=== PATIENT | male | born 1950 | race Caucasian/White ===

== ENCOUNTER 2017-01-21 19:25 | Inpatient (IN) | payer MEDICARE, OTHER ==
--- NOTE | ~2017-01-21 | IDS ---
Interim Discharge Summary [facility] [address] [place]. [address] NAME: KHUSHBU ADAMS : 49 STATUS : ADM IN PAT#: [id number] AGE: 66 ADM/REG DATE : 01/21/17 MR#: [id number] REPORT SERV DATE: 01/27/17 DICTATED BY: JOSE LAST DATE: 01/26/17 REPORT STATUS : Draft TRANSCRIBED BY: MODL DATE: 01/26/17 ADMISSION DATE: 01/21/2017 DISCHARGE DATE: WORKING DIAGNOSES: 1. Pneumomediastinum, developed during this hospital stay. 2. Exacerbation of idiopathic pulmonary fibrosis. 3. Acute on chronic hypoxic respiratory failure, at baseline. The patient is on 4 to 6 L of oxygen per nasal cannula. 4. Cough. 5. Coronary artery disease. CONSULTS: 1. Pulmonology. 2. Cardiothoracic Surgery. PROCEDURES: None. HOSPITAL COURSE: This is a 66-year-old gentleman who was admitted to the hospital with acute exacerbation of idiopathic pulmonary fibrosis. For details, please refer to excellent H and P by Dr. Jurado. In summary, the patient was admitted and was given oxygen support along with bronchodilator therapy and IV steroids. The patient actually responded really well and was getting ready for tentative discharge before the . On Thursday, in the evening, the patient developed change in his voice and odynophagia. The patient was evaluated by our night staff and had a CT of the neck performed, which showed significant amount of free air within the soft tissues and pneumomediastinum. The patient had gotten a CTA of the chest at the time of admission due to elevated D-dimer, which was negative for a PE and also at that time, it did not show any pneumomediastinum. Repeat CT as well as chest x-ray was performed on Thursday morning, which again showed extensive pneumomediastinum. Cardiothoracic Surgery was involved in the care, and the patient had a Gastrografin swallow study which demonstrated no esophageal leak. Throughout the weekend, the patient actually continued to improve clinically and he now remains on just 3 L of oxygen per nasal cannula. The patient still has hoarseness, but otherwise, he does not have odynophagia anymore. The tentative plan is for the patient to have a repeat chest x-ray in the morning to make sure he does not have a pneumothorax and if chest x-ray in the morning is stable, the patient may be discharged home with followup plans with Dr. Rashid by the end of the week with a repeat outpatient chest x-ray. For the idiopathic pulmonary fibrosis, the patient is being evaluated for a lung transplant at [place]. Pulmonology is working to get the patient in with [place] next month as the patient has rapidly progressing idiopathic pulmonary fibrosis. The patient remains on p.o. steroids which he can taper off when he gets discharged home. Otherwise, no other acute issues during this hospital stay. Interim Discharge Summary [place] [id number] [facility] [place]. [address] NAME: KHUSHBU ADAMS : 49 STATUS : ADM IN PAT#: [id number] AGE: 66 ADM/REG DATE : 01/21/17 MR#: [id number] REPORT SERV DATE: 01/27/17 DICTATED BY: JOSE LAST DATE: 01/26/17 REPORT STATUS : Draft TRANSCRIBED BY: PATRICIA DATE: 01/26/17 [facility] Jose Last MD / [id number] CC: MD Tania Jarvis D.O.
--- NOTE | ~2017-01-21 | CN ---
Consultation Report [facility] [address] [place]. [address] NAME: GUILLAUME ADAMS : 49 STATUS : ADM IN PAT#: [id number] AGE: 66 ADM/REG DATE : 01/21/17 MR#: [id number] REPORT SERV DATE: 01/22/17 DICTATED BY: CAMERON CEJA DATE: 01/22/17 REPORT STATUS : Draft TRANSCRIBED BY: MODL DATE: 01/22/17 CONSULTATION NOTE DATE OF CONSULTATION: 01/22/2017 REQUESTING PHYSICIAN: Jose Christopher MD CHIEF COMPLAINT: Shortness of breath in a patient with progressing idiopathic pulmonary fibrosis. HISTORY OF PRESENT ILLNESS: Mr. Guillaume Adams is a very pleasant 66-year-old white male, with a past medical history significant for idiopathic pulmonary fibrosis, chronic hypoxemic respiratory failure, and remote smoking history, who presents to [facility] as a direct admit for complaints of worsening shortness of breath and hypoxemia. It should be noted that Mr. Adams has not been hospitalized recently. Mr. Adams is currently followed locally by Dr. Kaylah Rashid for his outpatient pulmonary needs. He is on chronic oxygen supplementation ranging 4 to 6 L. He does occasionally increase the flow rate with exertion. He is taking pirfenidone 267 mg for his idiopathic pulmonary fibrosis. He is also on an anti-reflux medication. He has been seen by the team at [facility] for his idiopathic pulmonary fibrosis. He has also been assessed by [facility] for possible transplant. He has a followup appointment with them in March of this year. In an attempt to qualify for possible transplant, he has been actively participating in pulmonary rehab and a weight loss program. He describes his exercise tolerance has becoming progressively worse. Mr. Adams states that earlier this week, he began to experience worsening shortness of breath exceeding his baseline. His dry nonproductive cough began to become more pronounced. He did go for pulmonary rehab on Thursday, but was unable to complete his usual regimen. He noticed that his pulmonary reserve was even less than before. The patient did persevere until Thursday, when he felt that he would better be served by inpatient pulmonary care. As such, he was received as a direct admit to [facility]. He was given supplemental oxygen, steroids, and breathing treatments. For the aforementioned reasons, he has been referred to Pulmonary for further assessment. Currently, Mr. Adams states that he is breathing better. He continues to have a dry nonproductive cough. He does have complaints of a feeling that he needs to expectorate some degree. He has coughed up some thick sputum, although, it is not purulent. He denies any wheezing in his chest. He denies any recent fever or other signs of pneumonia. The patient does have known coronary artery disease, and has received stenting in the past. He currently denies any murmurs, angina, or palpitations. In regard to constitutional symptoms, he denies any fever chills, nausea, vomiting, chest Consultation Report [facility] [address] [place]. [address] NAME: GUILLAUME ADAMS : 49 STATUS : ADM IN [facility]#: [id number] AGE: 66 ADM/REG DATE : 01/21/17 MR#: [id number] REPORT SERV DATE: 01/22/17 DICTATED BY: CAMERON CEJA DATE: 01/22/17 REPORT STATUS : Draft TRANSCRIBED BY: PATRICIA DATE: 01/22/17 pain, abdominal pain, or edema. PAST MEDICAL HISTORY: 1. Idiopathic pulmonary fibrosis. 2. Chronic hypoxemic respiratory failure. 3. Small airways disease. 4. Gastroesophageal reflux disease. 5. Previous myocardial infarction. PAST SURGICAL HISTORY: Previous stent placement. FAMILY HISTORY: The patient states there is a family history of myocardial infarction. SOCIAL HISTORY: The patient is accompanied today by his son. He previously worked at [employer]. He may have had previous exposures to asbestos. TOBACCO/ALCOHOL: As previously mentioned, the patient is a very remote smoker having quit over 13 years ago. MEDICATIONS: Aspirin 81 mg, ondansetron 4 mg, pantoprazole 20 mg, and pirfenidone 267 mg. ALLERGIES: THE PATIENT HAS NUMEROUS ALLERGIES TO POLLENS THAT ARE LISTED IN THE CHART. NO KNOWN DRUG ALLERGIES. REVIEW OF SYSTEMS: A complete review of systems was performed with pertinent positives and negatives contained within the body of the HPI. PHYSICAL EXAMINATION: VITAL SIGNS: Blood pressure of 100/59, heart rate of 95, T-max of 97.9, respiratory rate of 18, and SpO2 is 95% on 6 L. GENERAL: The patient is a pleasant, well-nourished/well-developed male, who is not currently exhibiting any signs of acute distress. Skin: Skin with appropriate texture and turgor. No rashes, lesions, or ulcers. Nails are clear without cyanosis or clubbing. HEENT: Head: Skull is normocephalic/atraumatic. Facies symmetric. No masses or lesions. Eyes: Sclera anicteric, conjunctiva pink without exudates. Extra ocular movements intact. Pupils are equal, round, reactive to light. Ears: Auricles and tragus without pain to palpation. Hearing is grossly intact. Nose: Bilateral nasal patency. Sinuses without tenderness upon palpation. Throat: Dentition. Lips, oral mucosa, tongue, palate, and pharynx pink and moist without lesions. Uvula rises equally on phonation. Tongue midline without deviation. NECK: Neck supple. Trachea midline. No cervical lymphadenopathy appreciated. THORAX/LUNGS: Thorax is symmetric with equal chest rise. Breath sounds audible through entire field. No rales, wheezes, rhonchi. Inspiratory crackles in the posterior bases. Consultation Report [address] [place]. [address] NAME: GUILLAUME ADAMS : 49 STATUS : ADM IN [facility]#: [id number] AGE: 66 ADM/REG DATE : 01/21/17 MR#: [id number] REPORT SERV DATE: 01/22/17 DICTATED BY: CAMERON CEJA DATE: 01/22/17 REPORT STATUS : Draft TRANSCRIBED BY: PATRICIA DATE: 01/22/17 CARDIOVASCULAR: Regular rate and rhythm. No murmurs, rubs, or gallops. Anterior chest without thrills, heaves, or lifts. ABDOMEN: Soft. Non-distended, non-tender. Active bowel sounds in all four quadrants. No hepatosplenomegaly noted. PERIPHERAL VASCULAR: No edema. No varicosities, stasis changes, open sores, ulcerations, or phlebitis. 2+ pulses in radial and dorsalis pedis. MUSCULOSKELETAL: Full AROM and PROM in all joints. No evidence of erythema, deformity, or crepitus. NEUROLOGIC: CN II - XII grossly intact. Good muscle bulk and tone bilaterally. Strength 5/5 throughout. PSYCHIATRIC: Patient demonstrates good judgment and insight. Pt is A&O x 3. ACCESSORY DATA: reveals a white blood cell count of 540,0 hemoglobin and hematocrit 12.4 and 36.2. Electrolyte panel is within normal limits. Glucose is elevated at 144. There is a CTA of the chest pending. IMPRESSION: 1. Acute hypoxemic respiratory failure. 2. Idiopathic pulmonary fibrosis-exacerbation. PLAN: 1. At this time, we will place the patient on high-flow humidified oxygen. We will attempt to wean his oxygen as tolerated with a goal to 4 to 6 L. 2. In regard to the patient's exacerbation of idiopathic pulmonary fibrosis. He has been placed appropriately on steroid therapy. We will slightly decrease his IV steroids today and reassess tomorrow for clinical stability. Based on that we may be able to transition him to oral prednisone and taper accordingly. He is receiving bronchodilators as they provide him with subjective improvement in his breathing. He does have continuing dry nonproductive cough which is expected in this particular disease process. We will attempt to provide some symptomatic relief with Tessalon Perles, guaifenesin, and cough elixir. Moving forward, we will attempt to contact the transplant team at [place] in an attempt to move his continuing workup forward as he is demonstrating progression of disease clinically. There is a CT of the chest pending to further assess the progression of disease in the lung parenchyma. 3. The aforementioned impression and plan has been discussed with Dr. Dougherty, who will follow further recommendations. We thank you for this consult and look forward to participating in the care of Guillaume Adams. GBS/MODL Cameron Car Consultation Report [address] [address] NAME: GUILLAUME ADAMS : 49 STATUS : ADM IN PAT#: [id number] AGE: 66 ADM/REG DATE : 01/21/17 MR#: [id number] REPORT SERV DATE: 01/22/17 DICTATED BY: CAMERON CEJA DATE: 01/22/17 REPORT STATUS : Draft TRANSCRIBED BY: MODL DATE: 01/22/17 FRANKO Ceja / [id number] CC: MD Tania Jarvis D.O.
--- NOTE | ~2017-01-21 | CN ---
Consultation Report [facility] [address] [place]. [address] NAME: KHUSHBU ADAMS : 49 STATUS : ADM IN PAT#: [id number] AGE: 66 ADM/REG DATE : 01/21/17 MR#: [id number] REPORT SERV DATE: 01/24/17 DICTATED BY: BETINA ALBA DATE: 01/24/17 REPORT STATUS : Draft TRANSCRIBED BY: MODL DATE: 01/24/17 CONSULT REPORT DATE OF CONSULTATION: 01/24/2017 NURSE PRACTITIONER WITH CARDIOTHORACIC SURGERY REASON FOR CONSULTATION: Pneumomediastinum. HISTORY OF PRESENT ILLNESS: This is a very pleasant 66-year-old male with a past medical history of coronary artery disease, status post single stent by Dr. Qureshi. He also carries a diagnosis of interstitial pulmonary fibrosis, followed by Dr. Rashid since 2012. He has also been followed by Pulmonology in [place] and has also been evaluated by [facility] for possible lung transplant. The patient has been on 3 to 4 L of oxygen at rest chronically, occasionally it may go up to 6 to 8 L with any activity. He has been participating in pulmonary rehab and continues to work out with weights. He says that he was in his normal state of health until a few days ago when he began having significant shortness of breath. He was seen by his friend who is an manager inside who thought he might have a reactive component to some sort of medication. He eventually presented to the hospital with shortness of breath on 01/21/2017, and was initially worked up for an exacerbation of his pulmonary fibrosis. Pulmonology saw him. He complained of right-sided neck pain with difficulty swallowing. He had a CT scan of the neck done yesterday which showed extensive pneumomediastinum visible on the upper mediastinum with extensive soft tissue gas extending into very soft tissue planes of the neck. Cardiothoracic surgery has to evaluate the patient for this new diagnosis of pneumomediastinum. Currently, the patient is stable. He has no complaints other than what he describes as a feeling of "bubbling" in his right neck just above the scapula. He denies any cough or pain. He says he does have a little bit of discomfort with swallowing but that his cough over the last couple of days has been much better than it has in the past. PAST MEDICAL HISTORY: Coronary artery disease and interstitial pulmonary fibrosis. PAST SURGICAL HISTORY: No significant surgical history. SOCIAL HISTORY: Previous history of tobacco abuse, but was for a very short time. Rarely drinks alcohol. Previously employed at [employer] with asbestos exposure and he is currently employed with [employer]. FAMILY HISTORY: Reviewed and noncontributory. ALLERGIES: HE IS ALLERGIC TO POLLEN. HOME MEDICATIONS: Esbriet, Protonix, aspirin, and multiple vitamins. REVIEW OF SYSTEMS: Consultation Report [address] [place]. [address] NAME: KHUSHBU ADAMS : 49 STATUS : ADM IN PAT#: [id number] AGE: 66 ADM/REG DATE : 01/21/17 MR#: [id number] REPORT SERV DATE: 01/24/17 DICTATED BY: BETINA ALBA DATE: 01/24/17 REPORT STATUS : Draft TRANSCRIBED BY: PATRICIA DATE: 01/24/17 A 10-point review of systems was obtained and is negative other than HPI. PHYSICAL EXAMINATION: VITAL SIGNS: From today, temperature 97.6, heart rate 93, blood pressure 119/61, respiratory rate 18, and O2 saturation 93% on room air. GENERAL: Pleasant male, fit for his age, in no acute distress. PSYCHIATRIC: Normal mood, talkative, pleasant. NEUROLOGIC: Alert and oriented x3. Pupils are equal, round, and reactive to light and accommodation. He exhibits equal strength in bilateral upper extremities and bilateral lower extremities. HEENT: Head normocephalic and atraumatic. Sclerae clear. Nose midline with no abnormality. Good dentition overall. Ears with no abnormality. NECK: Supple. There is a soft area on the right side of his neck just above the scapula that has the consistency of subcutaneous air. No obvious thyromegaly or lymphadenopathy. LUNGS: Clear but diminished in the bases bilaterally. CARDIAC: S1, S2 with no murmurs, rubs, or gallops. ABDOMEN: Soft, nontender with active bowel sounds. EXTREMITIES: Free of cyanosis, clubbing, or edema. Pedal pulses are present and equal bilaterally. LABORATORY DATA: From today, CBC: White blood cell count 13.5, hemoglobin 11.7, hematocrit 34.5, and platelets 164. Procalcitonin less than 0.05. Sodium 138, potassium 4.3, chloride 103, bicarbonate 26, BUN 11, creatinine 0.9, and glucose 144. Legionella antigen not detected. Strep antigen not detected. CT scan of the neck performed on 01/23/2017, showed extensive pneumomediastinum visible on the upper mediastinum with extensive soft-tissue gas extending into very soft tissue planes of the neck. No embarrassment of the airway. No soft-tissue mass or cervical adenopathy. Moderate degenerative disc disease C5 through C7. Portable chest x-ray on 01/24/2017, showed severe interstitial fibrosis with pneumomediastinum and air in the right neck. ASSESSMENT AND PLAN: This is a 66-year-old male with history of interstitial pulmonary fibrosis, followed by Dr. Rashid in the outpatient setting as well as followed by [facility] and [facility] where he is on the lung transplant list. He has been in his normal state of health until recently when he began experiencing worsening shortness of breath and difficulty swallowing. He was brought in and initially treated for exacerbation of his pulmonary fibrosis but a CT scan of the neck done yesterday revealed pneumomediastinum with extensive soft tissue gas localized on the right side of his neck. As of now, we do not know where this is coming from. We would recommend to repeat the CT scan of his chest without contrast to evaluate for worsening of his pneumomediastinum. If he were to develop a pneumothorax, he would need to go to Interventional Radiology for pigtail placement. We will also keep him n.p.o. for now and request a Gastrografin barium swallow to evaluate for perforated esophagus. The patient may eventually need bronchoscopy by Pulmonology but do not believe that this needs to be done now. I discussed the plan with Dr. Beasley who also talked to the patient about the plan of care and the patient is agreeable. Consultation Report [place] [id number] [facility] [place]. [address] NAME: KHUSHBU ADAMS : 48 STATUS : ADM IN [facility]#: [id number] AGE: 66 ADM/REG DATE : 01/21/17 MR#: [id number] REPORT SERV DATE: 01/24/17 DICTATED BY: BETINA ALBA DATE: 01/24/17 REPORT STATUS : Draft TRANSCRIBED BY: PATRICIA DATE: 01/24/17 We will continue to follow with you. Thank you for the consultation. JACINTO/PATRICIA Betina Alba NP / [id number] CC: MD Tania Jarvis D.O.
--- NOTE | ~2017-01-21 | DS ---
Discharge Summary [address] [place]. [address] NAME: KHUSHBU ADAMS : 49 STATUS : DIS IN PAT#: [id number] AGE: 66 ADM/REG DATE : 01/21/17 MR#: [id number] REPORT SERV DATE: 01/28/17 DICTATED BY: BIJAL MARY DATE: 01/27/17 REPORT STATUS : Draft TRANSCRIBED BY: MODL DATE: 01/27/17 ADMISSION DATE: 01/21/2017 DISCHARGE DATE: 01/27/2017 DISCHARGE DIAGNOSES: 1. Acute on chronic interstitial lung disease. 2. Acute on chronic hypoxemic respiratory failure. 3. Acute pneumomediastinum, thought secondary to cough. 4. Coronary artery disease with previous stenting. 5. Chronic anemia. 6. Chronic mild thrombocytopenia. 7. Elevated globulins, outpatient serum protein electrophoresis and immunofixation needed. OPERATIONS AND PROCEDURES: None. PRESENT ILLNESS: This is a 66-year-old white male who was admitted by Dr. Germán Jurado, who was thought to be in acute exacerbation of interstitial lung disease as described on admission history and physical examination. Several days prior to admission, he had worsening shortness of breath exceeding his baseline. His normal nonproductive cough became more pronounced. He was unable to complete his normal pulmonary rehab. He has known interstitial lung disease with chronic respiratory failure, on home O2 and pirfenidone. He has previously been evaluated at [place] and [place], and is currently being evaluated for transplant at [facility] in the future. He is followed by Dr. Rashid. In this setting, he was admitted. ADDITIONAL HISTORY: Per Dr. Jurado. PHYSICAL EXAMINATION: Per Dr. Jurado. ADMISSION LABORATORY: Per Dr. Jurado. HOSPITAL COURSE: He was admitted by Dr. Jurado with: 1. Possible idiopathic pulmonary fibrosis exacerbation. 2. Acute on chronic respiratory failure, hypoxic. 3. Coronary artery disease history. 4. Cough. On admission, he was given IV steroids, bronchodilators, and additional O2. Symptomatic medications were given. He was seen in consultation by Pulmonary, Dr. Rashid and Cameron Wolf. Discharge Summary [address] [place]. [address] NAME: KHUSHBU ADAMS : 49 STATUS : DIS IN PAT#: [id number] AGE: 66 ADM/REG DATE : 01/21/17 MR#: [id number] REPORT SERV DATE: 01/28/17 DICTATED BY: BIJAL MARY DATE: 01/27/17 REPORT STATUS : Draft TRANSCRIBED BY: PATRICIA DATE: 01/27/17 His hospitalist care was by Dr. Christopher. His hospital care from admission through 01/26/2017 is as outlined on interim summary dictated by Dr. Christopher. He was seen by the undersigned on 01/27/2017 after having been seen by Thoracic Surgery and Pulmonary. His cough and dyspnea had improved. His voice had improved. He was eating without nausea. He had no voiding symptoms, he was not having diarrhea. His O2 saturation was 96% on 3.5 L. He had fine rales on lung exam. No gallop and no edema. His chest x-ray showed diffuse fibrosis, some left atelectasis, and persistent pneumomediastinum, but not progressive. Thoracic Surgery did not think any intervention was needed regarding his pneumomediastinum. Pulmonary felt that he had significantly improved and could be safely discharged on a steroid course with office followup. The patient felt that he had significantly improved and is therefore being discharged home with outpatient followup with Dr. Rashid and at [facility]. He will continue his home diet and activity as tolerated. Home O2 of 3 L to 4 L at rest, 6 L with exercise. HOME MEDICATIONS: Aspirin 81 mg daily, Tessalon 200 mg three times daily as needed, B12 of 500 mcg daily, vitamin D 2000 units daily, folic acid 400 mcg daily, guaifenesin 600 mg to 1200 mg twice daily, Protonix 20 mg daily, Esbriet three 267 mg tabs three times daily, prednisone 40 mg daily until followup with Dr. Rashid, albuterol nebs q.4 h., Tylenol as needed, Zofran ODT as needed. Discharge time greater than 30 minutes. DD/PATRICIA Bijal Mary M.D. / [id number] CC: Aparna Choi D.O. Pamela Sud, M.D.
--- NOTE | ~2017-01-21 | HP ---
History And Physical [place] [address] [facility] [place]. [address] NAME: KHUSHBU ADAMS : 48 STATUS : ADM IN PAT#: [id number] AGE: 66 ADM/REG DATE : 01/21/17 MR#: [id number] REPORT SERV DATE: 01/22/17 DICTATED BY: NANY WING DATE: 01/21/17 REPORT STATUS : Draft TRANSCRIBED BY: MODL DATE: 01/21/17 DATE OF ADMISSION: 01/21/2017 CHIEF COMPLAINT: Shortness of breath. HISTORY OF PRESENT ILLNESS: The patient is a very pleasant 66-year-old male with past medical history of coronary artery disease with single stent by Dr. Aleman and diagnosis of IPF followed by Dr. Rashid in 2012 who was in his usual state, has been participating in pulmonary rehab, also on evaluation with [facility] for lung transplant who approximately this Thursday began to have episodes of shortness of breath and had acute decompensation of respiratory status with decreased exercise tolerance, increased O2 requirements up 6 L to 8 L with activity. At baseline, he is approximately 3-4 L at rest but has noted increased shortness of breath. The patient is fairly healthy otherwise and had required very minimal episodes of hospital stays but with this episode the patient was noted to be significantly short of breath, was seen by a family friend tank processor and believed the patient was having reactive component. Case was also discussed with Dr. Kaylah Rashid who recommended further evaluation and optimization in the inpatient setting. When discussed with the patient, the patient does not have any chest pain, but describes a reactive type difficulty with congestion, gets multiple episodes where he feels mainly dried out. He has not had any nausea or vomiting. No new rashes that he reports except possibly when he had monitors placed on. Appetite has been fair but he has had significant coughing episodes that take his breath away and very difficult for him to recover from. The patient reports he had similar type episode when he had viral illness in which he had increased O2 requirements. REVIEW OF SYSTEMS: For additional 10-point review of systems negative except for that noted in the HPI. PAST MEDICAL HISTORY: Coronary artery disease and IPF. SURGICAL HISTORY: No surgical history. SOCIAL HISTORY: He has had episode of tobacco use in isolated period, years ago but very little tobacco overall, less than one to two years. Rare alcohol use as he reports only at [employer] and no illicits, accompanied by son who is very supportive. 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. The patient was a prior [employer] employee, did have asbestos exposure. FAMILY HISTORY: Noted for pemphigoid and stroke. ALLERGIES: JUST TO POLLEN. HOME MEDICATIONS: Esbriet, Protonix, aspirin, various vitamins. Complete list still pending. PHYSICAL EXAMINATION: History And Physical [address] [place]. [address] NAME: KHUSHBU ADAMS : [birth year] STATUS : ADM IN PAT#: [id number] AGE: 66 ADM/REG DATE : 01/21/17 MR#: [id number] REPORT SERV DATE: 01/22/17 DICTATED BY: NANY WING DATE: 01/21/17 REPORT STATUS : Draft TRANSCRIBED BY: PATRICIA DATE: 01/21/17 VITAL SIGNS: The patient blood pressure 114/72, O2 sats 90% on 4-6 L, temperature 98.7, pulse 109, respirations 20-25, and 101 kg. GENERAL: Well developed, well nourished. EYES: No scleral icterus. EOMI. ENT: Nares patent. Tongue midline. Posterior pharyngeal erythema. NECK: Supple without JVD. CHEST: Increased AP diameter. RESPIRATORY: Very shallow rapid breathing. No gross wheezes or rhonchi. No stridor. He does have clubbing bilaterally. CARDIAC: Tachycardic but one-to-one beat pulse ratio. No pedal edema. GI: Soft, nontender. Central obesity. : Deferred. MUSCULOSKELETAL: Moves all extremities x4. NEURO: Symmetrical strength upper and lower extremities but decreased exercise tolerance secondary to shortness of breathing. PSYCH: Appropriate mood and affect. SKIN: Does have mild eczema type lesions on back. HEME: No bleeding or bruising. LABS: None currently available. No imaging currently available. ASSESSMENT AND PLAN: 1. Possible Idiopathic pulmonary fibrosis exacerbation. 2. Acute on chronic respiratory failure, hypoxic. 3. Coronary artery disease history. 4. Cough. PLAN: 1. For possible IPF exacerbation, IV steroids, Vapotherm, check procalcitonin, BMP, cultures. He does appear reactive. The patient not on any Duo-nebs or recent steroids. I discussed with Dr. Rashid. We will get plain films at this time. IV steroids, continue home Esbriet. We will defer to Pulmonary Team in a.m. if requires further CT imaging. Monitor clinical response. Vapotherm also placed for hypoxia and additionally, the patient reports getting multiple episodes of drying out episodes. 2. Acute on chronic hypoxic respiratory failure. Does have increased O2 demand. We will have Vapotherm as needed try to decrease inflammation by treating above. 3. Coronary artery disease. Seen Dr. Aleman in the past. Continue aspirin. 4. Cough. Tessalon Perles and supportive. All questions answered with the patient and family. DISPOSITION: Pending response clinically to above. Care to be resumed by Medicine team in a.m. AZRAN/MODL History And Physical [address] [address] NAME: KHUSHBU ADAMS : [birth year] STATUS : ADM IN PAT#: [id number] AGE: 66 ADM/REG DATE : 01/21/17 MR#: [id number] REPORT SERV DATE: 01/22/17 DICTATED BY: NANY WING DATE: 01/21/17 REPORT STATUS : Draft TRANSCRIBED BY: PATRICIA DATE: 01/21/17 Nany Wing MD / [id number] CC: Aparna Miller D.O.
[~2017-01-21 19:25] MED LIST: ASAB PO; CRESTOR40 MG PO; CYANO1000T PO; FOLIC PO; TOPXL25 PO
[2017-01-21] MEDS ORDERED: PROTONIX20 MG PO (22:36)
[2017-01-21] MEDS ORDERED: ASAB PO (22:36)
[2017-01-21] MEDS ORDERED: B12250T PO (22:37)
[2017-01-21] MEDS ORDERED: VITAMIN D2000 UNIT PO (22:37)
[2017-01-21] MEDS ORDERED: FOLIC ACID400 MC1 PO (22:37)
[2017-01-21] MEDS ORDERED: ESBRIET267C PO (22:38)
[2017-01-21] MEDS ORDERED: ZOFRAN4 PO (22:41)
[2017-01-21 23:55] LABS: BASOPHILS 0.1 %; BASOPHILS ABSOLUTE 0.01 10/3/uL (0.0-0.16); HEMATOCRIT 37.5 % (40.0-51.0); HEMOGLOBIN 13.1 g/dL (13.6-17.8); IMMATURE GRANULOCYTES 0.3 %; IMMATURE GRANULOCYTES ABSOLUTE 0.03 10/3/uL (0.0-0.11); LYMPHOCYTES 34.4 %; MEAN CORPUS HGB CONC 34.9 g/dL (32.0-36.0); MEAN CORPUSCULAR VOLUME 97.4 fL (80-100); MEAN PLATELET VOLUME 10.3 fL (9.2-13.0); MONOCYTES 8.3 %; MONOCYTES ABSOLUTE 0.82 10/3/uL (0.21-1.20); NEUTROPHILS 55.9 %; NEUTROPHILS ABSOLUTE 5.52 10/3/uL (2.02-8.40); RBC DISTRIBUTION WIDTH 12.8 % (12.0-16.0); RED CELL COUNT 3.85 10/6/uL (4.7-6.1); WHITE BLOOD CELLS 9.9 10/3/uL (4.5-10.5)
[2017-01-21 23:56] LABS: MANUAL DIFF NO %; PLATELET COUNT 166 10/3/uL (150-400)
[2017-01-22] LABS: D-DIMER QUANTITATIVE 1.27 ug/mLFEU (< 0.50)
[2017-01-22 00:12] LABS: PHOSPHORUS, SERUM 3.7 MG/DL (2.5-4.5); TROPONIN I <0.02 NG/ML (<0.05)
[2017-01-22 00:19] LABS: ALLENS TEST Pos; BE (BASE EXCESS) 0.8 MEQ/L (0 +/- 2.5); CARBOXYHEMOGLOBIN 0.3 % (0-3); DEVICE NC; HCO3 (ACTUAL BICARBONATE) 25.2 MEQ/L (23-27); HEMOBLOGIN CONTENT 13.1 G/DL (14-18); INSTRUMENT SERIAL # 35151; METHEMOGLOBIN 0.3 % (0-3); OPERATOR ID 23712; PCO2 (CO2 TENSION) 40 MMHG (35-45); PO2 (O2 TENSION) 114 MMHG (79-93); SAMPLE Arterial; pH 7.42 (7.37-7.43)
[2017-01-22 00:55] LABS: PROCALCITONIN <0.05 ng/mL (<0.5)
[2017-01-22 02:07] LABS: INFLUENZA A SCREEN NEGATIVE (NEGATIVE); INFLUENZA B SCREEN NEGATIVE (NEGATIVE)
[2017-01-22 05:52] LABS: BASOPHILS 0 %; EOSINOPHILS 0.2 %; EOSINOPHILS ABSOLUTE 0.01 10/3/uL (0.0-0.53); HEMATOCRIT 36.2 % (40.0-51.0); HEMOGLOBIN 12.4 g/dL (13.6-17.8); LYMPHOCYTES 11.3 %; LYMPHOCYTES ABSOLUTE 0.61 10/3/uL (0.67-4.30); MEAN CORPUS HGB CONC 34.3 g/dL (32.0-36.0); MEAN CORPUSCULAR HEMOGLOB 33.4 pg (26.0-34.0); MEAN CORPUSCULAR VOLUME 97.6 fL (80-100); MEAN PLATELET VOLUME 10.4 fL (9.2-13.0); MONOCYTES 0.6 %; MONOCYTES ABSOLUTE 0.03 10/3/uL (0.21-1.20); NEUTROPHILS 87.9 %; NEUTROPHILS ABSOLUTE 4.73 10/3/uL (2.02-8.40); PLATELET COUNT 162 10/3/uL (150-400); RBC DISTRIBUTION WIDTH 12.9 % (12.0-16.0); RED CELL COUNT 3.71 10/6/uL (4.7-6.1)
[2017-01-22 06:02] LABS: MANUAL DIFF NO %; WHITE BLOOD CELLS 5.4 10/3/uL (4.5-10.5)
[2017-01-22 06:13] LABS: A/G RATIO 0.6 (0.7-1.9); ALBUMIN 3.2 G/DL (3.5-5.0); ALKALINE PHOSPHATASE 81 U/L (45-117); BUN (BLOOD UREA NITROGEN) 11 MG/DL (6-23); CALCIUM, SERUM 9.1 MG/DL (8.5-10.4); CHLORIDE, SERUM 103 MMOL/L (96-112); CO2 (CARBON DIOXIDE) 26 MMOL/L (24-34); CREATININE 0.89 MG/DL (0.70-1.30); GFR AFRICAN AMERICAN 103 ML/MIN (>=60); GFR NON AFRICAN AMERICAN 88 ML/MIN (>=60); POTASSIUM, SERUM 4.3 MMOL/L (3.5-5.3); SGOT(AST) 23 U/L (5-40); SGPT(ALT) 28 U/L (5-65); SODIUM, SERUM 138 MMOL/L (135-148); TOTAL BILIRUBIN 0.5 MG/DL (0-1.2); TOTAL PROTEIN 8.4 G/DL (6.0-8.5); TROPONIN I <0.02 NG/ML (<0.05)
[2017-01-22 06:17] LABS: GLOBULIN 5.2 G/DL (2.5-4.1); GLUCOSE, SERUM 144 MG/DL (60-99)
[2017-01-24 07:39] LABS: BASOPHILS 0.1 %; BASOPHILS ABSOLUTE 0.01 10/3/uL (0.0-0.16); EOSINOPHILS 0 %; HEMATOCRIT 34.5 % (40.0-51.0); HEMOGLOBIN 11.7 g/dL (13.6-17.8); IMMATURE GRANULOCYTES 0.3 %; IMMATURE GRANULOCYTES ABSOLUTE 0.04 10/3/uL (0.0-0.11); LYMPHOCYTES 5.8 %; LYMPHOCYTES ABSOLUTE 0.78 10/3/uL (0.67-4.30); MEAN CORPUS HGB CONC 33.9 g/dL (32.0-36.0); MEAN CORPUSCULAR HEMOGLOB 33.2 pg (26.0-34.0); MEAN PLATELET VOLUME 10.5 fL (9.2-13.0); MONOCYTES 2.8 %; MONOCYTES ABSOLUTE 0.38 10/3/uL (0.21-1.20); NEUTROPHILS ABSOLUTE 12.32 10/3/uL (2.02-8.40); PLATELET COUNT 164 10/3/uL (150-400); RBC DISTRIBUTION WIDTH 13.2 % (12.0-16.0); RED CELL COUNT 3.52 10/6/uL (4.7-6.1)
[2017-01-24 07:42] LABS: MANUAL DIFF NO %; WHITE BLOOD CELLS 13.5 10/3/uL (4.5-10.5)
[2017-01-26 05:49] LABS: CALCIUM, SERUM 8.4 MG/DL (8.5-10.4); CHLORIDE, SERUM 103 MMOL/L (96-112); CREATININE 0.85 MG/DL (0.70-1.30); GFR AFRICAN AMERICAN 104 ML/MIN (>=60); GFR NON AFRICAN AMERICAN 90 ML/MIN (>=60); POTASSIUM, SERUM 4.2 MMOL/L (3.5-5.3); SODIUM, SERUM 140 MMOL/L (135-148)
[2017-01-26 05:50] LABS: BASOPHILS 0 %; EOSINOPHILS 0.4 %; EOSINOPHILS ABSOLUTE 0.03 10/3/uL (0.0-0.53); HEMATOCRIT 35.3 % (40.0-51.0); HEMOGLOBIN 12.2 g/dL (13.6-17.8); IMMATURE GRANULOCYTES 0.3 %; IMMATURE GRANULOCYTES ABSOLUTE 0.02 10/3/uL (0.0-0.11); LYMPHOCYTES 27.8 %; LYMPHOCYTES ABSOLUTE 2.08 10/3/uL (0.67-4.30); MEAN CORPUS HGB CONC 34.6 g/dL (32.0-36.0); MEAN CORPUSCULAR HEMOGLOB 34.2 pg (26.0-34.0); MEAN CORPUSCULAR VOLUME 98.9 fL (80-100); MEAN PLATELET VOLUME 10.8 fL (9.2-13.0); MONOCYTES 8.4 %; MONOCYTES ABSOLUTE 0.63 10/3/uL (0.21-1.20); NEUTROPHILS 63.1 %; NEUTROPHILS ABSOLUTE 4.71 10/3/uL (2.02-8.40); PLATELET COUNT 148 10/3/uL (150-400); RBC DISTRIBUTION WIDTH 12.7 % (12.0-16.0); RED CELL COUNT 3.57 10/6/uL (4.7-6.1)
[2017-01-26 05:53] LABS: MANUAL DIFF NO %; WHITE BLOOD CELLS 7.5 10/3/uL (4.5-10.5)
[2017-01-26 05:54] LABS: BUN (BLOOD UREA NITROGEN) 16 MG/DL (6-23); CO2 (CARBON DIOXIDE) 31 MMOL/L (24-34); GLUCOSE, SERUM 88 MG/DL (60-99)
[2017-01-26 07:03] LABS: PROCALCITONIN 0.05 ng/mL (<0.5)
[2017-01-27] MEDS ORDERED: TESS PO (16:08)
[2017-01-27] MEDS ORDERED: MUCINEX600 MG PO (16:10)
[2017-01-27] MEDS ORDERED: P20 PO (16:11)
[2017-01-27] MEDS ORDERED: ALBUTEROL0.083 % INH (16:13)
[2017-01-27] MEDS ORDERED: T PO (16:14)
== END 2017-01-27 17:07 | disposition home or self-care (01) | DRG 196 ==
LOC: 6NO 19:25
PROVIDERS: Hospitalist; Internal Medicine; Student in an Organized Health Care Education/Training Program
DX: J84.112 Idiopathic pulmonary fibrosis (principal); J96.21 Acute and chronic respiratory failure with hypoxia; D69.6 Thrombocytopenia, unspecified; J98.2 Interstitial emphysema; R13.10 Dysphagia, unspecified; J20.9 Acute bronchitis, unspecified; I25.10 Atherosclerotic heart disease of native coronary artery without angina pectoris; K21.9 Gastro-esophageal reflux disease without esophagitis; Z95.5 Presence of coronary angioplasty implant and graft; Z87.891 Personal history of nicotine dependence
CPT/HCPCS: 36600; 70491; 71010; 71020; 71250; 71275; 74220; 80048; 80053; 82805; 83605; 83735; 83880; 84100; 84145; 84484; 85025; 85379; 85652; 86609; 86609-59; 86713; 87040; 87070; 87205; 87449; 87804; 93005; 94640; 94667; A9270-GY; J2920; J2930; Q9967